=== PATIENT | male | born 1945 | race Caucasian/White ===

== ENCOUNTER → 2017-02-26 | Day surgery (SDC) | payer MEDICARE ==
[~2017-02-26] MED LIST: ACETAMINOPHEN PO; AMBIEN10 MG PO; AMRIX15 MG; ASPIRIN81 M2 PO; ATARAX PO; AVAPRO PO; AVODART0.5 MG PO; CARAFATE1 G; CARAFATE1 GM PO; CELEXA PO; CLONAZEPAM0.5 MG GT; COUMADIN PO; FINASTERIDE5 MG PO; FISH OIL 1,0001 CAP PO; FLEXERIL PO; FLOMAX0.4 M1 PO; FLOMAX0.4 MG PO; FLORASTOR250 M1 PEG; HYDROCODON-ACE1 EACH PEG; HYDROCODON-ACE1 EACH PO; HYDROCODONE-APA1 T41 PO; KCL PO; KEFLEX500 M1 PEG; KEPPRA750 M1 PO; LIOTHYRONINE S25 MCG PO; LORTAB 10/500 T1 TAB PO; LOSARTAN POTASS50 MG PO; MAXARON FORTE1 EACH PO; MULTI-VITAMIN1 EAC1 PO; MULTIVITAMIN1 UDCAP PO; NAPROSYN500 MG PO; NEPHROCAPS CAPSU1 MG PO; NEURONTIN PO; NEURONTIN100 MG PO; NEURONTIN300 MG PO; NEXIUM PO; OMEGA 3 FISH OI1 CAP PO; OMEPRAZOLE20 M1 PO; PAMELOR25 M1 PO; PANTOPRAZOLE SO40 MG PO; PRISTIQ50 MG PO; PROSCAR5 MG PO; PROTONIX PEG; PROTONIX PO; REGLAN PO; REMERON15 MG PEG; SEROQUEL PO; TRAMADOL HCL50 M1 PO; TRAMADOL HCL50 M2 PO; ULTRAM PO; UNISOM25 MG PO; XANAX0.5 MG PO; ZOCOR PO
--- NOTE | ~2017-02-26 | EKG ---
PATIENT: LAURA DEMPSEY UNIT #: [id number] Ventricular Rate: 61 BPM Atrial Rate: 61 BPM P-R Interval: 196 ms QRS Duration: 100 ms Q-T Interval: 396 ms QTC Calculation(Bezet): 398 ms P Buckner: 31 degrees Calculated R Buckner: -23 degrees Calculated T Buckner: 12 degrees Diagnosis Line: Normal sinus rhythm Diagnosis Line: Minimal voltage criteria for LVH, may be normal Diagnosis Line: variant Diagnosis Line: Otherwise normal ECG Diagnosis Line: When compared with ECG of 13-NOV-2015 13:48, Diagnosis Line: No significant change was found Diagnosis Line: Confirmed by TED PELAEZ MD ([id number]) on 02/27/2017 Diagnosis Line: 5:58:55 PM INTERPRETING MD: BENIGNO DEL ANGEL
--- NOTE | ~2017-02-26 | OR ---
Unit #: [id number] #: [id number] Patient: LAURA DEMPSEY [id number] [address] [address] [id number] O MR#: [id number] NAME: LAURA DEMPSEY. ROOM: Date of Procedure: 02/26/2017 Admission Date: 02/26/2017 Surgeon: Parish Rico M.D. : 1945 Attending Physician: Parish Rico M.D. Primary Care Physician: Eleanor James Aprn OPERATIVE REPORT PREOPERATIVE DIAGNOSIS Urethral stricture. POSTOPERATIVE DIAGNOSIS Urethral stricture. PROCEDURES PERFORMED Cystoscopy, direct vision internal urethrotomy. ANESTHESIA General. DESCRIPTION OF PROCEDURE After informed consent, the patient was taken to the operating room, placed under general anesthetic, positioned in lithotomy. His penis and perineum were prepped and draped in usual sterile fashion. Cystoscopy was performed showing a normal urethra up to the bulbar urethra, where he had a stricture. There was a lumen, but the lumen was very small. A Sensor wire was placed into the urethra through the stricture into the bladder. Using the urethrotome, the stricture was opened at the 12 o'clock position sharply and without cautery. The stricture was just distal to the membranous urethra. After opening the stricture, I was able to inspect the prostatic urethra as well as the membranous urethra. The bladder was inspected as well. There were no tumors or stones. No diverticula. Normal appearing left and right ureteral orifices. The entire bladder was inspected. An 18-[place] [employer] tip catheter was placed to drainage over the wire. The wire was removed. The patient was taken to recovery and discharged home with the catheter. Return to see me as an outpatient for catheter removal. Dictated by... Tom ZunigaB/anuradhal TD: 02/26/2017 23:08 JOB #: [id number] Unit #: [id number] #: [id number] Patient: LAURA DEMPSEY OPERATIVE REPORT Page 1 of 1 X Parish Rico MD X PROCEDURE OPERATIVE NOTE
[2017-02-26 07:37] LABS: HEMATOCRIT 41.2 % (38.0-50.0); HEMOGLOBIN 13.4 gm/dL (13.0-16.0); MEAN CELL VOLUME 96.9 FL (83-96); MEAN CORPUSCULAR HEMOGLOBIN 31.5 PG (28-34); MEAN CORPUSCULAR HGB CONC 32.5 g/dL (30-36); MEAN PLATELET VOLUME 8.5 FL (6.5-11.5); RED BLOOD COUNT 4.26 X10e (3.90-5.60); RED CELL DISTRIBUTION WIDTH 13.4 % (11.0-15.5); WHITE BLOOD COUNT 8.2 X10e3 (4.0-10.5)
== END | disposition home or self-care (01) ==
LOC: CSUR 06:35
PROVIDERS: Urology
DX: N35.9 Urethral stricture, unspecified (principal); N40.0 Benign prostatic hyperplasia without lower urinary tract symptoms; Z88.5 Allergy status to narcotic agent; Z88.8 Allergy status to other drugs, medicaments and biological substances; Z79.891 Long term (current) use of opiate analgesic; Z79.899 Other long term (current) drug therapy
CPT/HCPCS: 85027; 93005; J1956; J3010

== ENCOUNTER → 2017-04-28 | Outpatient (CLI) | payer MEDICARE ==
--- NOTE | ~2017-04-28 | MR32 ---
[facility] A Service of [facility] & [facility] RADIOLOGY TEXT RESULTS PATIENT: LAURA DEMPSEY LOCATION: [facility] : [birth year] UNIT #: [id number] AGE: [address]: ILYA POLLOCK APRN SEX: M ORDER DR: [id number] [address] [address] [id number] O MR#: [id number] Acc #: [id number] NAME: LAURA DEMPSEY : 1945 SEX: M STUDY DATE/TIME: 04/28/2017 9:26 UNIT: [facility] ROOM: STUDY DESCRIPTION: MR Cervical Wo Contrast Attending Physician: Ilya Pollock Aprn Referring Physician: Ilya Pollock Aprn Ordering Physician: Ilya Pollock Aprn Primary Care Physician: Ilya Pollock Aprn MRI CENTER REPORT This report is preliminary unless electronic signature is present. EXAM Cervical MRI. HISTORY No known injury. Patient complains of increasing neck pain, limited range of motion and crepitus for the past 6 to 12 months accompanied by headaches. TECHNIQUE Multiplanar imaging of the cervical spine was performed with short and long TR. 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 At C3-4 the disc is degenerated. Broad-based posterior disc bulging and osteophyte formation is seen extending to both uncovertebral joints. There is mild central stenosis and moderately severe bilateral foraminal stenosis. At C4-5, there is a grade 1 spondylolisthesis with no significant disc space narrowing. Broad-based posterior disc bulging and osteophyte formation is seen extending to the right uncovertebral joint. There is severe right foraminal narrowing and moderate foraminal narrowing on the left. Bilateral facet arthropathy is noted, greater on the right than on the left. At C5-6, the disc is collapsed and there is a degenerative retrolisthesis that is mild measuring about 2 mm. Central stenosis is moderate. Foraminal stenosis is severe on both sides and worse on the right than on the left. At C6-7 there is broad-based posterior disc bulging and osteophyte formation with moderate central stenosis and moderate bilateral foraminal narrowing. Facet hypertrophy is moderately severe on the left and mild on STS. [facility] A Service of [facility] RADIOLOGY TEXT RESULTS PATIENT: LAURA DEMPSEY LOCATION: [facility] : 47 UNIT #: [id number] AGE: [address]: ILYA POLLOCK APRN SEX: M ORDER DR: the right. At C7-T1, the canal and foramina are widely patent. The cord is normal in size and signal. There is no evidence of marrow edema. No paraspinous masses are seen. There is a metal artifacts seen in the upper thoracic region presumably related to previous upper thoracic fusion. IMPRESSION Multilevel generally moderate to severe and cervical degenerative disc and facet disease as described above level by level. Central stenosis is most prominent at C5-6. No acute bony abnormalities are seen. No cord lesions are noted. Dictated by... Jeremy Quijano M.D. THIS IS AN ELECTRONICALLY VERIFIED REPORT Jeremy Quijano M.D. at 04/29/2017 4:51 PM VJ/nanci TD: 04/29/2017 13:29 JOB #: [id number] MRI CENTER REPORT Page 1 of 1
== END | disposition home or self-care (01) ==
LOC: SMRI 08:51
DX: M54.2 Cervicalgia (principal); M50.31 Other cervical disc degeneration, high cervical region; M48.02 Spinal stenosis, cervical region
CPT/HCPCS: 72141

== ENCOUNTER → 2017-05-16 | Outpatient (CLI) | payer MEDICARE ==
--- NOTE | ~2017-05-16 | US37 ---
[facility] A Service of [facility] RADIOLOGY TEXT RESULTS PATIENT: LAURA DEMPSEY LOCATION: [facility] : 47 UNIT #: [id number] AGE: [address]: Clovis Troy MD SEX: M ORDER DR: [id number] [facility] [address] [place], [place] [address] [id number] O MR#: [id number] Acc #: [id number] NAME: LAURA DEMPSEY : 1945 SEX: M STUDY DATE/TIME: 05/16/2017 12:27 UNIT: [facility] ROOM: STUDY DESCRIPTION: US Carotid W/Doppler Bilateral Attending Physician: Clovis Troy M.D. Referring Physician: Clovis Troy M.D. Ordering Physician: Clovis Troy M.D. Primary Care Physician: Eleanor James Aprn MEDICAL IMAGING REPORT This report is preliminary unless electronic signature is present EXAM Carotid duplex scan 05/16/2017 HISTORY Dizziness. FINDINGS The right common carotid artery has minimal plaque. There is only a small amount of plaque in the right carotid bulb, which extends up into the proximal internal and external carotid arteries. Peak systolic velocity in the mid-right internal carotid artery is 82 cm/sec. The ICA:CCA ratio on the right is 0.82. Peak systolic velocity in the right external carotid artery is 91 cm/sec. The right vertebral artery is patent with antegrade flow. The left common carotid artery has minimal plaque. There is only a small amount of plaque in the left carotid bulb, which extends up into the proximal internal and external carotid arteries. Peak systolic velocity in the proximal left internal carotid artery is 117 cm/sec. The ICA:CCA ratio on the left is 0.98. Peak systolic velocity in the left external carotid artery is 124 cm/sec. The left vertebral artery is patent with antegrade flow. IMPRESSION Minimal plaque and no significant stenosis (less than 50%) in the internal and external carotid arteries bilaterally. Patent vertebral arteries bilaterally with antegrade flow. Dictated by... Toño Box M.D. STS. [facility] A Service of [facility] & [facility] RADIOLOGY TEXT RESULTS PATIENT: LAURA DEMPSEY LOCATION: IV : 47 UNIT #: [id number] AGE: [address]: Clovis Troy MD SEX: M ORDER DR: THIS IS AN ELECTRONICALLY VERIFIED REPORT Toño Box M.D. at 05/19/2017 4:20 PM SBS/pcl TD: 05/18/2017 13:45 JOB #: [id number] MEDICAL IMAGING REPORT Page 1 of 1 COPY
== END | disposition home or self-care (01) ==
LOC: CNIV 11:52
DX: I65.23 Occlusion and stenosis of bilateral carotid arteries (principal)
CPT/HCPCS: 93880